=== PATIENT | female | born 2000 | race Caucasian/White ===

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

== ENCOUNTER 2021-01-19 02:01 | Emergency (ER) | payer BC ==
[~2021-01-19] VITALS: Ht 170.2 cm; Wt 56.7 kg
--- OUTSIDE RECORDS SUMMARY | 2021-01-19 02:06 | XMS REPORT | Clinical Summary ---
Author Author [facility] Organization [facility] Address Unknown Phone Unavailable Care Team Providers Care Digital Advertising Specialist Name Role Phone Christie Aguillon MD PCP Source Comments Some departments are not documenting in the electronic medical record. If you d o not see the information that you expected, contact Release of Information in [facility] [employer] Information Management department at [phone] for further assistan ce in locating additional records.[facility] Allergies Comments Active Allergy Reactions Severity Noted Date Azithromycin STOMACH UPSET Low 11/18/2016 Cefdinir STOMACH UPSET Low 11/18/2016 Cyproheptadine UNKNOWN Low 06/28/2019 Medications End Date Status Medication Sig Dispensed Refills Start Date Active topiramate XR (TROKENDI 100 mg. 0 XR) 100 mg 9 Active rizatriptan (MAXALT) 10 0 mg tablet 7 Active Problems Problem Noted Date Esotropia, partially accommodative 05/08/2020 Overview: Formatting of this note might be differ ent from the original. Hx patching as a child (first at age 5, then again age 7) No previous surgery L ast Assessment & Plan: Formatting of this note might be differ ent from the original. 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 Very mild, monitor Hyperopia with astigmatism, bilateral 12/06/2019 Last Assessment & Plan: Formatting of this note might be differ ent from the original. 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 Interested in [facility] referral Will reach out to Dr Sloan regarding referral process Surgical History Surgery Date Site/Laterality Comments TONSIL AND ADENOIDECTOMY WISDOM TEETH EXTRACTION Medical History Medical History Date Comments Migraines Social History Date Tobacco Use Types Packs/Day Years Used Never Smoker Smokeless Tobacco: Never Used Comments Alcohol Use Standard Drinks/Week Never 0 (1 standard drink = 0.6 o z pure alcohol) Alcohol Habits Answer Date Recorded How often do you have a drink containing alcohol? Never 06/28/2019 How many drinks containing alcohol do you have on No t asked a typical day when you are drinking? How often do you have six or more drinks on one Not asked occasion? Comment: Not asked Sex Assigned at Date Recorded Not on file Last Filed Vital Signs Reading Time Taken Comments Vital Sign - - Blood Pressure - - Pulse - - Temperature - - Respiratory Rate - - Oxygen Saturation - - Inhaled Oxygen Concentration 47.6 kg (105 lb) 06/28/2019 7:50 AM SECTION GANG WORKER Weight 167.6 cm (5' 6") 06/28/2019 7:50 AM SECTION GANG WORKER Height 16.95 06/28/2019 7:50 AM SECTION GANG WORKER Body Mass Index Plan of Treatment Health Maintenance Due Date Last Done Comments HPV VACCINES (1 - 2-dose 01/19/2012 series) HIV SCREENING 01/19/2016 DTAP/TDAP VACCINES (1 - 2019 Tdap) HEPATITIS C SCREENING 2019 PHYSICAL (COMPREHENSIVE) 2019 EXAM INFLUENZA VACCINE 02/02/2021 02/14/2019, 02/17/2012 MENINGOCOCCAL VACCINE Aged Out 02/17/2012 No longe r eligible based on patient's age to (Jamarcus RODRIGUEZ) complete this topic Results Not on filefrom Last 3 Months Insurance Type Payer Benefit Subscriber ID Effective Phone Address Plan / Dates Group PPO BCBS [employer] [id number] 2018-P OUT OF resent [place] [employer] [id number] 2019-P resent [phone] Advance Directives 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
--- OUTSIDE RECORDS SUMMARY | 2021-01-19 02:06 | XMS REPORT | Clinical Summary ---
Author Author [facility] Organization [facility] Address Unknown Phone Unavailable Care Team Providers Care Baggage And Mail Agent Name Role Phone Christie Aguillon MD PP [phone] Allergies Comments Active Allergy Reactions Severity Noted Date Cefdinir GI 11/20/2016 Intolerance Azithromycin GI 11/20/2016 Intolerance Medications End Date Status Medication Sig Dispensed Refills Start Date Active rizatriptan (MAXALT) 5 MG TAKE 1 TAB BY 2 10/04 tablet MOUTH AT 7 ONSET OF HEADACHE, MAY REPEAT IN 2 HOURS NEEDED, NO MORE THAN 2 TABS/24 HR Active ondansetron (ZOFRAN-ODT) DISSOLVE 1 1 12/16 4 MG disintegrating TABLET BY 9 tablet MOUTH NEEDED FOR HEADACHE WITH NAUSEA Active TROKENDI XR 100 mg cp24 TAKE ONE 5 CAPSULE BY 9 MOUTH EVERY NIGHT AT BEDTIME Active Problems Not on file Encounters Care Team Description Date Type Specialty Nallely Boykin, SHADI Contact with and (suspected) exposure to covid-19 (Primary Dx); Infection due to 2019-nCoV 01/03/2021 Office Visit Progress Notes - Jarrod Perry - 01/03/2021 10:20 AM CDT Self Swab Type: Anterior Nasal from Last 3 Months Immunizations Name Administration Dates Next Due PPD Test 11/30/2019 Social History Date Tobacco Use Types Packs/Day Years Used Never Smoker Smokeless Tobacco: Never Used Sex Assigned at Date Recorded Not on file Last Filed Vital Signs Reading Time Taken Comments Vital Sign 95/60 01/03/2019 9:11 AM CDT Blood Pressure 103 01/03/2019 9:11 AM CDT Pulse 37.2 C (99 F) 01/03/2019 9:11 AM CDT Temperature 18 01/03/2019 9:11 AM CDT Respiratory Rate 100% 01/03/2019 9:11 AM CDT Oxygen Saturation - - Inhaled Oxygen Concentration 52.2 kg (115 lb) 01/03/2019 9:11 AM CDT Weight 167.6 cm (5' 6") 01/03/2019 9:11 AM CDT Height 18.56 01/03/2019 9:11 AM CDT Body Mass Index Plan of Treatment Not on file Procedures Comments Procedure Name Priority Date/Time Associated Diag nosis SARS-COV-2 RNA, QL NAAT, Routine 01/03/[address] with and RT PCR/TMA (COVID-19) 10:23 AM CDT (suspected) exp osure to covid-19 from Last 3 Months Results * SARS-COV-2 RNA, QL NAAT, RT PCR/TMA (COVID-19) (01/03/2021 10:23 AM CDT) [facility] Detected (A) Not Detected [facility] 1 SARS-COV-2 RNA, Comment: QL NAAT, RT Patients who have a positiv e PCR/TMA COVID-19 test result may no w (COVID-19) have treatment options. Treatment options are available for patients with mild to moderate symptoms and for hospitalized patients. Visit our website at [email or web address] for resources and information. Testing was performed using the Aptima SARS-CoV-2 assay. This nucleic acid amplification test was developed and its performance characteristics determined by [employer]. Nucleic acid amplification tests include RT-PCR and TMA. This test has not been FDA cleared or approved. This test has been authorized by FDA under an Emergency Use Authorization (EUA). This test is only authorized for the duration of time the declaration that circumstances exist justifying the authorization of the emergency use of in vitro diagnostic tests for detection of SARS-CoV-2 virus and/or diagnosis of COVID-19 infection under section 564(b)(1) of the Act, 21 U.S.C. 360bbb-3(b) (1), unless the authorization is terminated or revoked sooner. When diagnostic testing is negative, the possibility of a false negative result should be considered in the context of a patient's recent exposures and the presence of clinical signs and symptoms consistent with COVID-19. An individual without symptoms of COVID-19 and who is not shedding SARS-CoV-2 virus would expect to have a negative (not detected) result in this assay. Specimen Narrative [facility] - 01/05/2021 4:37 AM CDT Performed at: 01 - [facility] [address], [place], [place] [id number] Machinist Helper Marine: Antonino Granados MD, Phone: [phone] Performing Organization Address City/State/ZIP Code P tristen Number [facility] [address] [place], [place] [phone] [facility] 1 from Last 3 Months Insurance Type Payer Benefit Subscriber ID Effective Phone Address Plan / Dates Group BCBS BCBS [id number] 2018-P [facility] - NON HMO PLANS [id number] (Home) [place] [address] Care Teams Start Date End Date Baggage And Mail Agent Relationship Specialty 11/20/16 Christie Aguillon, PCP - General Pediatrics [address] [facility] [address] [place] [id number]
--- OUTSIDE RECORDS SUMMARY | 2021-01-19 02:06 | XMS REPORT | Encounter Summary ---
Author Author [facility] Organization [facility] Address Unknown Phone Unavailable Care Team Providers Care Paper Sorter Name Role Phone Christie Aguillon MD PCP [phone] Reason for Visit * Reason Comments Covid-19 Send Out Testing Encounter Details Care Team Description Date Type Department Dereck Boykin NP [address] [place] [address] Contact with and (suspected) exposure to covid-19 (Primary Dx); Infection due to 2019-nCoV 01/03/2021 Office Visit [id number] JANETH [address] [place] [address] Social History Date Tobacco Use Types Packs/Day Years Used Never Smoker Smokeless Tobacco: Never Used Sex Assigned at Date Recorded Not on file documented as of this encounter Last Filed Vital Signs Not on filedocumented in this encounter Functional Status Date of Assessment Functional Status Response Is the person deaf or does he/she have serious difficulty hearing? Is this person blind or does he/she hav e serious difficulty seeing even when wearing gla sses? Does this person have serious difficult y walking or climbing stairs? Does this person have difficulty dressi ng or bathing? Because of a physical, mental, or emoti onal condition, does this person have diffic ulty doing errands alone such as visiting a doctor 's office or shopping? Date of Assessment Cognitive Status Response Because of a physical, mental, or emoti onal condition, does this person have seriou s difficulty concentrating, remembering, or making decisions? documented as of this encounter Patient Instructions * Patient Instructions* Jarrod Perry - 01/03/2021 10:20 AM CDT Seek immediate emergency medical attention if you experience severe or worsening abdominal pain, difficulty swallowing, stiff neck, shortness of breath, coughing or vomiting up blood, chest pain, increased fever, unexplained weight loss, or blood in stool. Follow up with you primary care provider for questions or any new symptoms Seek immediate emergency medical attention if you experience severe or worsening abdominal pain, difficulty swallowing, stiff neck, shortness of breath, coughing or vomiting up blood, chest pain, increased fever, unexplained weight loss, or blood in stool. Follow up with you primary care provider for questions or any new symptoms Positive Test results You were seen for COVID-19 Testing and have tested posit david. Follow up with your primary care provider for questions or any new symptoms . According to the Centers for Disease Control (CDC), you can stop self-isolatin g if you meet the below criteria If you will not have a test to determine if you are still contagious, you can le ave home after these three things have happened: o You have had no fever for at least 24 hours (that is 24 hours of no fever with out the use medicine that reduces fevers) AND o other symptoms have improved (for example, when your cough or shortness of victorino ath have improved) AND o at least 10 days have passed since your symptoms first appeared Managing your symptoms During this viral illness, rest and hydration are impor tant in your recovery. You can take anti-fever medication as directed per your [facility] provider and package instructions. Prevent the spread of illness Separate yourself from other people in your home As much as possible, you shoul d stay in a specific room and away from other people in your home. Also, you saad uld use a separate bathroom, if available. Call ahead before visiting your doctor If you have a medical appointment, call t he healthcare provider and tell them that you have or may have COVID-19. This wi ll help the healthcare providers office take steps to keep other people from getting infected or exposed. Wear a facemask You should wear a facemask, if possible, when you are around oth er people (e.g., sharing a room or vehicle) and before you enter a healthcare pr oviders office. If you are not able to wear a facemask (for example, because it causes trouble breathing), then people who live with you should not be in the same room with you, or they should wear a facemask if they enter your room. Cover your coughs and sneezes Cover your mouth and nose with a tissue when you c ough or sneeze. Throw used tissues in a lined trash can; immediately clean your hands as described below. Clean your hands often Wash your hands often with soap and water for at least 20 seconds. If soap and water are not available, clean your hands with an alcohol- based hand fire sprinkler installer that contains at least 60% alcohol, covering all surfaces o f your hands and rubbing them together until they feel dry. Soap and water is pr eferred if hands are visibly dirty. Avoid touching your eyes, nose, and mouth wi th unwashed hands. Avoid sharing personal household items You should not share dishes, drinking gla sses, cups, eating utensils, towels, or bedding with other people or pets in you r home. After using these items, they should be washed thoroughly with soap and water and dried before use by others. Clean all high-touch surfaces every day High touch surfaces include counte rs, tabletops, doorknobs, bathroom fixtures, toilets, phones, keyboards, tablets , and bedside tables. Also, clean any surfaces that may have blood, stool, or butch dy fluids on them. Use a household cleaning spray or wipe, according to the labe l instructions. Labels contain instructions for safe and effective use of the cl eaning product including precautions you should take when applying the product, such as wearing gloves and making sure you have good ventilation during use of t he product. documented in this encounter Progress Notes * Jarrod Perry - 01/03/2021 10:20 AM CDT Self Swab Type: Anterior Nasal documented in this encounter Miscellaneous Notes * Addendum Note - Dereck Boykin NP - 01/03/2021 10:20 AM CDT Addended by: DERECK BOYKIN on: 01/05/2021 01:43 PM Modules accepted: SmartSet documented in this encounter Plan of Treatment Not on filedocumented as of this encounter Goals Not on filedocumented as of this encounter Procedures Comments Procedure Name Priority Date/Time Associated Diag nosis SARS-COV-2 RNA, QL NAAT, Routine 01/03/[address] with and RT PCR/TMA (COVID-19) 10:23 AM CDT (suspected) exp osure to covid-19 documented in this encounter Results * SARS-COV-2 RNA, QL NAAT, RT PCR/TMA (COVID-19) (01/03/2021 10:23 AM CDT) [facility] Detected (A) Not Detected [facility] 1 SARS-COV-2 RNA, Comment: QL NAAT, RT Patients who have a positiv e PCR/TMA COVID-19 test result may no w (COVID-19) have treatment options. Treatment options are available for patients with mild to moderate symptoms and for hospitalized patients. Visit our website at [email or web address] for resources and information. Testing was performed using the Aptima SARS-CoV-2 assay. This nucleic acid amplification test was developed and its performance characteristics determined by [facility]. Nucleic acid amplification tests include RT-PCR and [...] AM CDT Performed at: 01 - [facility] [address], [facility], [place] [id number] [place] Operator: Antonino Granados MD, Phone: [phone] Performing Organization Address City/State/ZIP Code P tristen Number [facility] [address] [place], [place] [phone] [facility] documented in this encounter Visit Diagnoses Diagnosis Contact with and (suspected) exposure t o covid-19 - Primary Infection due to 2019-nCoV documented in this encounter Administered Medications Not on filedocumented in this encounter Additional Health Concerns Not on filedocumented as of this encounter Care Teams Start Date End Date Paper Sorter Relationship Specialty 11/20/16 Christie Aguillon, PCP - General Pediatrics [address] [place] [id number] documented as of this encounter
[2021-01-19] MEDS ORDERED: OLANZapine 5 MG ODT (ZyPREXA ZYDIS) ONE (02:08)
--- NOTE | 2021-01-19 02:12 | ED Psychosocial ---
General Stated Complaint: EXCITED DELERIUM Source: patient, family, EMS Exam Limitations: no limitations (CÉSAR SANTIZO) History of Present Illness Date Seen by Provider: Jan 19, 2021 Time Seen by Provider: 01:58 Initial Comments Patient to the ER by EMS from the dorm room with a chief complaint of excited delirium, striking herself on the head and striking her head against the ground repeatedly. Apparently she has history of self-harm, slapping self. She says she does not always do these however she missed her medications by a couple hours because she was celebrating her birthday having some drinks and this caused a psychotic break. She does not take antipsychotics nor has she ever. Her doctor is Dr. Franco in [facility]. Her parents live in [facility]. She does not have a local provider. She is not having any nausea, head pain, loss of consciousness. EMS reports she was freaking loudly and they are unable to get any history or cooperation from her when they arrived. She received 5 mg Versed IM and then an IV was established and she was transported to the ER. She states she takes Lexapro and another medication 5 mg start with a "B", she thinks may be buspirone. She denies hallucinations, or homicidal ideation. She does however endorse suicidal ideation but is triggered by her "psychotic break". She denies having a plan. She says she has had suicidal thoughts and attempts in the past but did not work but does not want to talk about them right now. (CÉSAR SANTIZO) Allergies and Home Medications Allergies Coded Allergies: azithromycin (Verified Allergy, Unknown, 03/04/20) cefdinir (Verified Allergy, Unknown, 03/04/20) Patient Home Medication List Home Medication List Reviewed: Yes (CÉSAR SANTIZO) Review of Systems Constitutional: No chills, No diaphoresis EENTM: No ear discharge, No ear pain Respiratory: No cough, No short of breath Cardiovascular: No chest pain, No Hx of Intervention Gastrointestinal: No abdominal pain, No nausea, No vomiting Genitourinary: No decreased output, No dysuria Musculoskeletal: No back pain, No joint pain Psychiatric/Neurological: Anxiety (CÉSAR SANTIZO) All Other Systems Reviewed Negative Unless Noted: Yes (CÉSAR SANTIZO) Past Juardow-Tzurvv-Igwbnt Hx Patient Social History Tobacco Use?: No Use of E-Cig and/or Vaping dev: No Substance use?: No Alcohol Use?: Yes Alcohol type: Other (Mixed drinks) Alcohol Frequency: Once in a while (CÉSAR SANTIZO) Past Medical History Surgeries: Yes (WISDOM TEETH) Adenoidectomy, Tonsillectomy Respiratory: No Cardiac: No Neurological: No Reproductive Disorders: No Genitourinary: No Gastrointestinal: No Musculoskeletal: No Endocrine: No HEENT: Yes (S/P T&A, WISDOM TEETH REMOVED) Tonsilitis Cancer: No Psychosocial: No Integumentary: Yes (ACNE) Blood Disorders: No (CÉSAR SANTIZO) Physical Exam Vital Signs - First Documented 01/19/21 02:01 Temp 36.5 Pulse 122 Resp 22 B/P (MAP) 141/96 (111) Pulse Ox 99 O2 Delivery Room Air (IVETTE OJEDA MD) Capillary Refill : (CÉSAR SANTIZO) Height, Weight, BMI Height: '" Weight: lbs. oz. kg; 18.00 BMI Method: General Appearance: WD/WN, moderate distress HEENT: PERRL/EOMI, pharynx normal Neck: full range of motion, normal inspection Respiratory: lungs clear, normal breath sounds, no respiratory distress, no accessory muscle use Cardiovascular: normal peripheral pulses, regular rate, rhythm Peripheral Pulses: 2+ Radial Pulses (R), 2+ Radial Pulses (L) Gastrointestinal: non tender, soft Neurologic/Psychiatric: alert, oriented x 3, other (anxious affect) Appearance/Memory: appropriate appearance, appropriate insight Behavior/Eye Contact: cooperative, good eye contact (CÉSAR SANTIZO) Progress/Results/Core Measures Results/Orders Lab Results Laboratory Tests Test 01/19/21 02:07 01/19/21 02:32 01/19/21 04:12 01/19/21 07:02 Range/Units White Blood Count 7.9 4.3-11.0 10^3/uL Red Blood Count 4.32 3.80-5.11 10^6/uL Hemoglobin 13.4 11.5-16.0 g/dL Hematocrit 40 35-52 % Mean Corpuscular Volume 91 80-99 fL Mean Corpuscular Hemoglobin 31 25-34 pg Mean Corpuscular Hemoglobin Concent 34 32-36 g/dL Red Cell Distribution Width 13.0 10.0-14.5 % Platelet Count 264 130-400 10^3/uL Mean Platelet Volume 8.7 L 9.0-12.2 fL Immature Granulocyte % (Auto) 0 % Neutrophils (%) (Auto) 58 42-75 % Lymphocytes (%) (Auto) 32 12-44 % Monocytes (%) (Auto) 8 0-12 % Eosinophils (%) (Auto) 1 0-10 % Basophils (%) (Auto) 1 0-10 % Neutrophils # (Auto) 4.6 1.8-7.8 10^3/uL Lymphocytes # (Auto) 2.6 1.0-4.0 10^3/uL Monocytes # (Auto) 0.6 0.0-1.0 10^3/uL Eosinophils # (Auto) 0.1 0.0-0.3 10^3/uL Basophils # (Auto) 0.1 0.0-0.1 10^3/uL Immature Granulocyte # (Auto) 0.0 0.0-0.1 10^3/uL Sodium Level 141 135-145 MMOL/L Potassium Level 3.3 L 3.6-5.0 MMOL/L Chloride Level 108 H 98-107 MMOL/L Carbon Dioxide Level 22 21-32 MMOL/L Anion Gap 11 5-14 MMOL/L Blood Urea Nitrogen 8 7-18 MG/DL Creatinine 0.82 0.60-1.30 MG/DL Estimat Glomerular Filtration Rate 89 BUN/Creatinine Ratio 10 Glucose Level 103 70-105 MG/DL Calcium Level 8.9 8.5-10.1 MG/DL Corrected Calcium 8.7 8.5-10.1 MG/DL Total Bilirubin 0.2 0.1-1.0 MG/DL Aspartate Amino Transf (AST/SGOT) 16 5-34 U/L Alanine Aminotransferase (ALT/SGPT) 12 0-55 U/L Alkaline Phosphatase 37 L 40-136 U/L Total Protein 7.1 6.4-8.2 GM/DL Albumin 4.3 3.2-4.5 GM/DL Salicylates Level < 5.0 L 5.0-20.0 MG/DL Acetaminophen Level < 10 L 10-30 UG/ML Serum Alcohol 158 H 112 H 59 H <10 MG/DL Urine Color YELLOW Urine Clarity CLEAR Urine pH 6.0 5-9 Urine Specific [place] 1.010 L 1.016-1.022 Urine Protein NEGATIVE NEGATIVE Urine Glucose (UA) NEGATIVE NEGATIVE Urine Ketones NEGATIVE NEGATIVE Urine Nitrite NEGATIVE NEGATIVE Urine Bilirubin NEGATIVE NEGATIVE Urine Urobilinogen 0.2 < = 1.0 MG/DL Urine Leukocyte Esterase NEGATIVE NEGATIVE Urine RBC (Auto) NEGATIVE NEGATIVE Urine RBC NONE /HPF Urine WBC NONE /HPF Urine Squamous Epithelial Cells 2-5 /HPF Urine Crystals NONE /LPF Urine Bacteria NEGATIVE /HPF Urine Casts NONE /LPF Urine Mucus NEGATIVE /LPF Urine Culture Indicated NO Urine Opiates Screen NEGATIVE NEGATIVE Urine Oxycodone Screen NEGATIVE NEGATIVE Urine Methadone Screen NEGATIVE NEGATIVE Urine Propoxyphene Screen NEGATIVE NEGATIVE Urine Barbiturates Screen NEGATIVE NEGATIVE Ur Tricyclic Antidepressants Screen NEGATIVE NEGATIVE Urine Phencyclidine Screen NEGATIVE NEGATIVE Urine Amphetamines Screen NEGATIVE NEGATIVE Urine Methamphetamines Screen NEGATIVE NEGATIVE Urine Benzodiazepines Screen NEGATIVE NEGATIVE Urine Cocaine Screen NEGATIVE NEGATIVE Urine Cannabinoids Screen NEGATIVE NEGATIVE (IVETTE OJEDA MD) Medications Given in ED Current Medications Medications Dose Ordered Sig/Vic Route Start Time Stop Time Status Last Admin Dose Admin Lactated Ringer's 1,000 ml @ 0 mls/hr Q0M ONCE IV 01/19/21 03:00 01/19/21 03:01 DC 01/19/21 02:57 999 MLS/HR Lactated Ringer's 1,000 ml @ 200 mls/hr Q5H ONCE IV 01/19/21 05:15 01/19/21 10:14 01/19/21 05:15 200 MLS/HR Olanzapine 5 mg ONCE ONCE PO 01/19/21 02:15 01/19/21 02:16 DC 01/19/21 02:11 5 MG (IVETTE OJEDA MD) Vital Signs/I&O 01/19/21 02:01 Temp 36.5 Pulse 122 Resp 22 B/P (MAP) 141/96 (111) Pulse Ox 99 O2 Delivery Room Air (IVETTE OJEDA MD) Progress Progress Note : Time: 02:16 Progress Note Zyprexa 5 mg oral dissolving tablet x1 now. Her family is on their way but about an hour and a half away. We will check some labs and urinalysis for alcohol and drug screen. We will have her mental health screener talk to her via telehealth. (CÉSAR SANTIZO) Progress Note : Time: 08:30 Progress Note Nurse Vicki on the phone with [facility] 0901 Both nursing staff and myself reevaluated Jordyn. She is adamantly denying suicidal thoughts/suicidal ideation/suicidal plan at this time. She has a Zoom appointment with her therapist at 2 PM today. She does live in a sorority house and is requesting to be discharged back to that. I feel the safest option for Jordyn is to strongly recommend that she goes home with mom and dad for the next 24 hours. They can monitor her at home make sure that she continues to improve. She can take her BuSpar again tonight without alcohol and can assess more accurately any potential side effects. She is a little bit apprehensive of this and would like to go back to her sorority house but both her mom and I have advised her that the safest most responsible option is to go home. She is quite tearful but is agreeable. [facility] stated that there was going to be no need for their assessment/intervention as the patient is denying suicidal thoughts/plan at this time. Vital signs are stable. Labs have been reviewed and are reassuring. Alcohol level dropped to less than 80. She has had fluids. Reviewed plan of care with mom. She is agreeable. All questions were sought and answered. Patient is stable for discharge. (IVETTE OJEDA MD) Initial ECG Impression Date: Jan 19, 2021 (CÉSAR SANTIZO) Departure Impression Primary Impression: Self-harming behavior Additional Impressions: Compulsive behavior Alcohol intoxication Qualified Codes: F10.929 - Alcohol use, unspecified with intoxication, unspecified Disposition: 01 HOME, SELF-CARE Condition: Stable Departure-Patient Inst. Decision time for Depature: 09:04 (IVETTE OJEDA MD) Referrals: NO,LOCAL PHYSICIAN (PCP/Family) Primary Care Physician Patient Instructions: Alcohol Intoxication ED, Depression Add. Discharge Instructions: Home with parents today, for 24 hours. You can take your Buspar tonight, monitor yourself for symptoms. Keep your appointment with your Therapist at 2pm today. Alcohol is a depressant and it is not advisable to take your anti-anxiety medications or your anti-depressants with alcohol. Come back to the Emergency Department for any new, emergent or concerning symptoms. CÉSAR SANTIZO Jan 19, 2021 02:12 IVETTE OJEDA MD Jan 19, 2021 08:38
[2021-01-19] MEDS ORDERED: OLANZapine 5 MG ODT (ZyPREXA ZYDIS) PO ONE (02:15)
[2021-01-19 02:19] LABS: BASOPHILS # (AUTO) 0.1 10^3/uL (0.0-0.1); BASOPHILS % (AUTO) 1 % (0-10); EOSINOPHILS # (AUTO) 0.1 10^3/uL (0.0-0.3); EOSINOPHILS % (AUTO) 1 % (0-10); HEMATOCRIT 40 % (35-52); HEMOGLOBIN 13.4 g/dL (11.5-16.0); LYMPHOCYTES # (AUTO) 2.6 10^3/uL (1.0-4.0); LYMPHOCYTES % (AUTO) 32 % (12-44); MEAN CORPUSCULAR HEMOGLOBIN 31 pg (25-34); MEAN CORPUSCULAR HGB CONC 34 g/dL (32-36); MEAN CORPUSCULAR VOLUME 91 fL (80-99); MEAN PLATELET VOLUME 8.7 fL (9.0-12.2); MONOCYTES # (AUTO) 0.6 10^3/uL (0.0-1.0); MONOCYTES % (AUTO) 8 % (0-12); NEUTROPHILS # (AUTO) 4.6 10^3/uL (1.8-7.8); NEUTROPHILS % (AUTO) 58 % (42-75); PLATELET COUNT 264 10^3/uL (130-400); WHITE BLOOD COUNT 7.9 10^3/uL (4.3-11.0)
[2021-01-19 02:20] LABS: ALBUMIN 4.3 GM/DL (3.2-4.5); POTASSIUM 3.3 MMOL/L (3.6-5.0)
[2021-01-19 02:21] LABS: CALCIUM 8.9 MG/DL (8.5-10.1)
[2021-01-19 02:23] LABS: TOTAL PROTEIN 7.1 GM/DL (6.4-8.2)
[2021-01-19 02:25] LABS: BILIRUBIN,TOTAL 0.2 MG/DL (0.1-1.0)
[2021-01-19 02:26] LABS: CREATININE SERUM 0.82 MG/DL (0.60-1.30)
[2021-01-19 02:41] LABS: BILIRUBIN,URINE NEGATIVE (NEGATIVE); CLARITY,URINE CLEAR; COLOR,URINE YELLOW; GLUCOSE, URINE (UA) NEGATIVE (NEGATIVE); KETONES,URINE NEGATIVE (NEGATIVE); LEUKOCYTE ESTERASE ,URINE NEGATIVE (NEGATIVE); NITRITE,URINE NEGATIVE (NEGATIVE); PROTEIN,URINE NEGATIVE (NEGATIVE)
[2021-01-19 02:53] LABS: AMPHETAMINE SCREEN, URINE NEGATIVE (NEGATIVE); BACTERIA,URINE NEGATIVE /HPF; BARBITURATE SCREEN URINE NEGATIVE (NEGATIVE); BENZODIAZEPINES SCREEN URINE NEGATIVE (NEGATIVE); CANNABINOID SCREEN, URINE NEGATIVE (NEGATIVE); COCAINE SCREEN URINE NEGATIVE (NEGATIVE); METHADONE STAT NEGATIVE (NEGATIVE); METHAMPHETAMINE SCREEN URINE S NEGATIVE (NEGATIVE); OPIATE SCREEN URINE NEGATIVE (NEGATIVE); OXYCODONE STAT NEGATIVE (NEGATIVE); PROPOXYPHENE STAT NEGATIVE (NEGATIVE); TRICYCLIC ANTIDEPRESSANTS SCRE NEGATIVE (NEGATIVE)
[2021-01-19 02:56] LABS: SALICYLATE < 5.0 MG/DL (5.0-20.0)
[2021-01-19] MEDS ORDERED: LACTATED RINGERS 1,000 ML IV ONE ×2 (03:00→05:15)
[2021-01-19 03:01] LABS: ACETAMINOPHEN < 10 UG/ML (10-30)
[2021-01-19 09:20] VITALS: BP 121/80
== END 2021-01-19 09:20 | disposition home or self-care (01) ==
LOC: EDUNIT# 02:01 → ER 02:03
DX: F42.9 Obsessive-compulsive disorder, unspecified (principal); F10.929 Alcohol use, unspecified with intoxication, unspecified; Y90.6 Blood alcohol level of 120-199 mg/100 ml; Z72.89 Other problems related to lifestyle
CPT/HCPCS: 80053; 80306; 81000; 84703; 85025; 93005; 99284; G0480 ×3; 36415; 80320; 80329

== ENCOUNTER 2021-04-05 17:22 | Emergency (ER) | payer BC ==
[~2021-04-05] VITALS: Ht 172.7 cm; Wt 52.0 kg
--- OUTSIDE RECORDS SUMMARY | 2021-04-05 17:26 | XMS REPORT | Clinical Summary ---
Author Author [facility] Organization [facility] Address Unknown Phone Unavailable Care Team Providers Care Mechanical Reliability Engineer Name Role Phone Christie Aguillon MD PCP Source Comments Some departments are not documenting in the electronic medical record. If you d o not see the information that you expected, contact Release of Information in [facility] Information Management department at [phone] for further assistan ce in locating additional records.[facility] Allergies Comments Active Allergy Reactions Severity Noted [...] original. 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 Very mild, monitor Hyperopia with astigmatism, bilateral 12/06/2019 Last Assessment & Plan: Formatting of this note might be differ ent from the original. 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 Weight 167.6 cm (5' 6") 06/28/2019 7:50 AM MOTOR VEHICLE TECHNICIAN Height 16.95 06/28/2019 7:50 AM MOTOR VEHICLE TECHNICIAN Body Mass Index Plan of Treatment Health Maintenance Due Date Last Done Comments HPV VACCINES (1 - 2-dose 01/19/2012 series) HIV SCREENING 01/19/2016 DTAP/TDAP VACCINES ( - 2019 Tdap) HEPATITIS C SCREENING 2019 PHYSICAL (COMPREHENSIVE) 2019 EXAM INFLUENZA VACCINE 12/03/2020 02/14/2019, 02/17/2012 MENINGOCOCCAL VACCINE Aged Out 02/17/2012 No longe r eligible based on patient's age to (Jamarucs RODRIGUEZ) complete this topic Results Not on filefrom Last 3 Months Insurance Type Payer Benefit Subscriber ID Effective Phone Address Plan / Dates Group PPO BCBS [employer] [id number] 2018-P [phone] [address] [place] [address] [employer] [id number] 2019-P [phone] [address] [place] [phone] Advance Directives 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
--- NOTE | 2021-04-05 17:34 | ED Headache ---
General Chief Complaint: Head/Cervical Problems Stated Complaint: MIGRAINE X 5 DAYS Source: patient Exam Limitations: no limitations History of Present Illness Date Seen by Provider: Apr 05, 2021 Time Seen by Provider: 17:32 Initial Comments To ER by private vehicle with reports of a left-sided migraine for 5 days. She sees [facility] neurologist for headaches and she is on Zomig and verapamil for headache control. These have not helped. She denies any head injury, denies any fevers or chills, denies any neck pain. This headache started 5 days ago. Typically her headaches are bilateral so this is unusual for her. No vomiting and no confusion. Timing/Duration: 1 week Severity/Quality: moderate Prior Headaches/Recent Trauma: frequent headaches Associated Symptoms: No confusion, No fever/chills, No nausea/vomiting, No stiff neck Allergies and Home Medications Allergies Coded Allergies: azithromycin (Verified Allergy, Unknown, 03/04/20) cefdinir (Verified Allergy, Unknown, 03/04/20) Patient Home Medication List Home Medication List Reviewed: Yes Review of Systems Review of Systems Constitutional: see HPI; No chills, No fever Eyes: No Symptoms Reported Ears, Nose, Mouth, Throat: no symptoms reported Respiratory: no symptoms reported Cardiovascular: no symptoms reported Genitourinary: no symptoms reported Musculoskeletal: no symptoms reported Skin: no symptoms reported Psychiatric/Neurological: No Symptoms Reported Past Auwrtjf-Sqdzqt-Banfnc Hx Immunizations Up To Date First/Initial COVID19 Vaccinat: July 2020 Past Medical History Surgeries: Yes (WISDOM TEETH) Adenoidectomy, Tonsillectomy Respiratory: No Cardiac: No Neurological: No Reproductive Disorders: No Genitourinary: No Gastrointestinal: No Musculoskeletal: No Endocrine: No HEENT: Yes (S/P T&A, WISDOM TEETH REMOVED) Tonsilitis Cancer: No Psychosocial: No Integumentary: Yes (ACNE) Blood Disorders: No Physical Exam Vital Signs Vital Signs - First Documented 04/05/21 17:25 Temp 37.0 Pulse 92 Resp 18 B/P (MAP) 132/80 (97) Pulse Ox 98 O2 Delivery Room Air Capillary Refill : Height, Weight, BMI Height: '" Weight: lbs. oz. kg; 19.00 BMI Method: General Appearance: WD/WN, no apparent distress HEENT: PERRL/EOMI, normal ENT inspection Neck: non-tender, full range of motion Respiratory: no respiratory distress, no accessory muscle use Gastrointestinal: normal bowel sounds, non tender Extremities: normal range of motion, non-tender Psychiatric: alert, oriented x 3 Crainal Nerves: normal hearing, normal speech, PERRL Skin: normal color, warm/dry Progress/Results/Core Measures Results/Orders My Orders Orders - FARZAD RENAE APRN Ketorolac Injection (Toradol Injection) (04/05/21 17:45) Prochlorperazine Injection (Compazine In (04/05/21 17:45) Diphenhydramine Injection (Benadryl Inje (04/05/21 17:45) Medications Given in ED Current Medications Medications Dose Ordered Sig/Vic Route Start Time Stop Time Status Last Admin Dose Admin Diphenhydramine HCl 25 mg ONCE ONCE IM 04/05/21 17:45 04/05/21 17:46 DC 04/05/21 17:48 25 MG Ketorolac Tromethamine 60 mg ONCE ONCE IM 04/05/21 17:45 04/05/21 17:46 DC 04/05/21 17:48 60 MG Prochlorperazine Edisylate 10 mg ONCE ONCE IM 04/05/21 17:45 04/05/21 17:46 DC 04/05/21 17:48 10 MG Vital Signs/I&O 04/05/21 17:25 Temp 37.0 Pulse 92 Resp 18 B/P (MAP) 132/80 (97) Pulse Ox 98 O2 Delivery Room Air Departure Communication (Admissions) 0659-she reports that she is feeling much better at this time. Remains alert and oriented. We will discharged home. Impression Primary Impression: Headache Disposition: 01 HOME, SELF-CARE Condition: Stable Departure-Patient Inst. Decision time for Depature: 18:38 Referrals: NO,LOCAL PHYSICIAN (PCP/Family) Primary Care Physician Patient Instructions: Headache, Adult ED Add. Discharge Instructions: 1. Return to ER for any concerns 2. Follow-up with your doctor this week or next. All discharge instructions reviewed with patient and/or family. Voiced understanding. FARZAD RENAE APRN Apr 05, 2021 17:34
[2021-04-05] MEDS ORDERED: KETOROLAC 60 MG/2 ML VIAL IM ONE (17:45)
[2021-04-05] MEDS ORDERED: PROCHLORPERAZINE 10 MG/2ML INJ (COMPAZINE) IM ONE (17:45)
[2021-04-05] MEDS ORDERED: diphenhydrAMINE 50 MG/ML INJ (BENADRYL) IM ONE (17:45)
[2021-04-05 18:44] VITALS: BP 118/75
== END 2021-04-05 18:44 | disposition home or self-care (01) ==
LOC: EDUNIT# 17:22 → ER 17:23
DX: R51.9 Headache, unspecified (principal)
CPT/HCPCS: 99284

== ENCOUNTER 2021-09-09 22:35 | Emergency (ER) | payer BC ==
[~2021-09-09] VITALS: Ht 170 cm; Wt 52.0 kg
--- NOTE | 2021-09-09 23:33 | ED Lower Extremity ---
General Chief Complaint: Lower Extremity Stated Complaint: R ANKLE PAIN, SWELLLING,BRUISING Nursing Triage Note: Patient states that she fell yesterday while stunting from 4.5 ft. She states today her right ankle is swollen and bruised and she his experiencing difficulty pointing and flexing her foot and that it hurts to touch. Source: patient Exam Limitations: no limitations History of Present Illness Date Seen by Provider: September 09, 2021 Time Seen by Provider: 23:02 Initial Comments This is a 21-year-old young lady presents to the emergency room with injury to h er right ankle. She reports falling yesterday while doing "stenting". The incident happened quickly and she is uncertain of the exact mechanism. She has significant swelling and bruising to the right lateral malleolus. She denies pain in any other area of the foot or ankle. She is ambulatory. She denies any other injuries. Allergies and Home Medications Allergies Coded Allergies: azithromycin (Verified Allergy, Unknown, 03/04/20) cefdinir (Verified Allergy, Unknown, 03/04/20) Patient Home Medication List Home Medication List Reviewed: Yes Review of Systems Constitutional: no symptoms reported EENTM: no symptoms reported Respiratory: no symptoms reported Cardiovascular: no symptoms reported Gastrointestinal: no symptoms reported Genitourinary: no symptoms reported Musculoskeletal: see HPI Skin: see HPI Psychiatric/Neurological: No Symptoms Reported Past Agstscr-Yachyt-Ihctrd Hx Patient Social History Tobacco Use?: No Substance use?: No Alcohol Use?: Yes Alcohol Frequency: Once in a while Immunizations Up To Date First/Initial COVID19 Vaccinat: July COVID19 Vaccination Eren: August COVID19 Vaccination Date: JULY Past Medical History Surgery/Hospitalization HX: covid long haul Surgeries: Yes (WISDOM TEETH) Adenoidectomy, Tonsillectomy Respiratory: No Cardiac: No Neurological: No Reproductive Disorders: No Genitourinary: No Gastrointestinal: No Musculoskeletal: No Endocrine: No HEENT: Yes (S/P T&A, WISDOM TEETH REMOVED) Tonsilitis Cancer: No Psychosocial: No Integumentary: Yes (ACNE) Blood Disorders: No Physical Exam Vital Signs Vital Signs - First Documented 09/09/21 22:50 Temp 37.0 Pulse 99 Resp 18 B/P (MAP) 134/94 (107) Pulse Ox 97 O2 Delivery Room Air Capillary Refill : Less Than 3 Seconds Height, Weight, BMI Height: '" Weight: lbs. oz. kg; 17.00 BMI Method: General Appearance: WD/WN, no apparent distress HEENT: normal ENT inspection Respiratory: normal breath sounds, no respiratory distress Legs: right leg non-tender, right leg normal inspection, right leg normal range of motion, right leg no evidence of injury Knees: right knee non-tender, right knee normal range of motion; bilateral knee ecchymosis Ankles: right ankle bone tenderness, right ankle ecchymosis, right ankle limited range of motion, right ankle pain, right ankle swelling, right ankle other (Swelling, ecchymosis, and tenderness over the right lateral malleolus) Feet: right foot non-tender, right foot normal inspection, right foot normal range of motion, right foot no evidence of injury, right foot other (Foot is cool to the touch, presumably from icing and wrapping with Sanjay bandage. Pedal pulse palpable. Capillary refill of the toes brisk. Sensation and movement of the toes intact) Neurologic/Tendon: normal sensation, normal motor functions, normal tendon functions, responds to pain Neurologic/Psychiatric: no motor/sensory deficits, alert, normal mood/affect, oriented x 3 Skin: warm/dry, ecchymosis Progress/Results/Core Measures Results/Orders My Orders Orders - ANGELA SALAZAR MD Ankle, Right, 3 Views (09/09/21 23:06) Vital Signs/I&O 09/09/21 09/09/21 22:50 23:39 Temp 37.0 Pulse 99 95 Resp 18 16 B/P (MAP) 134/94 (107) 124/73 Pulse Ox 97 98 O2 Delivery Room Air Room Air Blood Pressure Mean: 107 Progress Progress Note : Progress Note X-rays reviewed by me. Report not yet available. No acute injuries were identified. See discharge instructions for further discussion. Departure Impression Primary Impression: Right ankle sprain Qualified Codes: S93.401A - Sprain of unspecified ligament of right ankle, initial encounter Disposition: HOME, SELF-CARE Condition: Stable Departure-Patient Inst. Decision time for Depature: 23:31 Referrals: NO,LOCAL PHYSICIAN (PCP/Family) Primary Care Physician Patient Instructions: Ankle Sprain ED Add. Discharge Instructions: For pain you may use ibuprofen up to 400 mg every 6 hours as needed and/or Tylenol (acetaminophen) up to 1000 mg every 6 hours as needed. Additionally you may use elevation, compressive wrapping, and 20-minute intervals of icing to reduce pain and swelling. Gradually increase level of activity as pain allows. For the next 6 weeks you should use a lace up or Velcro brace to support your ankle whenever active. If not improving significantly over the next week, return to care for reevaluation. Your x-rays were interpreted by the ER physician. A radiologist will give a final interpretation in the morning. You are invited to call the ER tomorrow morning after 9:00 AM for the official interpretation. Return to care if you have any further concerns or worsening of condition despite following these instructions. All discharge instructions reviewed with patient and/or family. Voiced underst anding. ANGELA SALAZAR MD September 09, 2021 23:33
[2021-09-09 23:39] VITALS: BP 124/73
--- NOTE | 2021-09-10 06:06 | Diagnostic Imaging Report ---
INDICATION: Right ankle injury FINDINGS: 3 views of the right ankle demonstrate no fracture or dislocation. Articular surfaces are normal. No foreign body. IMPRESSION: Negative right ankle Dictated by: Dictated on workstation # [id number]
== END 2021-09-09 23:40 | disposition home or self-care (01) ==
LOC: EDUNIT# 22:35 → ER 22:37
DX: S93.401A Sprain of unspecified ligament of right ankle, initial encounter (principal); W17.89XA Other fall from one level to another, initial encounter; Y93.I9 Activity, other involving external motion
CPT/HCPCS: 73610